=== PATIENT | female | born 1945 | race Caucasian/White ===

== ENCOUNTER → 2019-08-12 10:28 | Outpatient (CLI) | payer MEDICARE, OTHER | END | disposition home or self-care (01) | LOC: D.HCCARDIO 10:28 | PROVIDERS: ATTEND Internal Medicine Cardiovascular Disease | DX: R06.09 Other forms of dyspnea (principal) ==

== ENCOUNTER 2019-08-31 09:57 | Outpatient (CLI) | payer MEDICARE, OTHER ==
[~2019-08-31] VITALS: Ht 165.1 cm; Wt 80.9 kg
--- NOTE | ~2019-08-31 | HEMODYNAMI ---
PATIENT:OTIS NGUYEN MEDICAL RECORD: [id number] : 43 LOCATION:[facility] ADMISSION DATE: 08/31/19 Generatedon:08/31/201914:03 Patient name: OTIS NGUYEN Patient #: [id number] SSN: [id number] : 1945 Date of study: 08/31/2019 Page: Of Hemodynamic Procedure Report Patient Data Patient Demographics Procedure consent was obtained First Name: OTIS Gender: Female Last Name: PATRICK : 1945 [facility] Initial: C Age: 74 year(s) Patient #: [id number] Race: SSN: [id number] Additional ID: [id number] Contact details Address: [address] [place] [address] State: [place] City: [facility] Zip code: [address] Past Medical History Allergies: No known allergies Admission Admission Data Admission Date: 08/31/2019 Admission Time: 9:57 Arrival Date: 08/31/2019 Arrival Time: 0:00 Height (in.): 64.96 BSA: 1.88 (m2) Height (cm.): 165 BMI: 29.75 (kg/m2) Weight (lbs.): 178.58 Weight (kg.): 81 Lab Results Lab Result Date: 08/31/2019 Lab Result Time: 0:00 Biochemistry Name Units Result Min Max BUN mg/dl 16 --(---*)-- 7 18 Creatinine mg/dl 0.7 --(*---)-- 0.6 1.3 eGFR ml/min 85.76128 -*(----)-- 90 120 NONAFRICAN CBC Name Units Result Min Max Hematocrit % 39.7 -*(----)-- 42 54 Hemoglobin g/dl 12.7 -*(----)-- 13.5 17.5 Procedure Procedure Types Cath Procedure Diagnostic Procedure C [facility] w/Coronaries Sedation Charges Moderate Sedation up to 30 minutes Procedure Description Procedure Date Procedure Date: 08/31/2019 Procedure Start Time: 13:35 Procedure End Time: 14:01 Procedure Staff Name Function Aamir Javier MD Performing Physician Betsy Berrios RT Monitor Katie Babcock RN Nurse Helen Clark RT Scrub Indication Dyspnea Procedure Data Cath Procedure Fluoroscopy Diagnostic fluoroscopy Total fluoroscopy Time: 4.1 time: 4.1 min min Diagnostic fluoroscopy Total fluoroscopy dose: 605 dose: 605 mGy mGy Contrast Material Contrast Material Type Amount (ml) Isovue 300 71 Entry Location Entry Primary Successful Side Size Upsize Upsize Entry Closure Jules ccessful Closure Location (Fr) 1 (Fr) 2 (Fr) Remarks Device Remarks Radial Right 6 Fr Mechanical artery Short Compression Femoral Right 5 Fr Exoseal artery Estimated blood loss: 5 ml Diagnostic catheters Device Type Used For End Catheter Placement DIAGNOSTIC [place] 110cm 5 Procedure Fr catheter ([id number]) MULTIPACK JL 4.0 5Fr Left Coronary catheter Angiography MULTIPACK 3DRC 5Fr Right Coronary catheter Angiography MULTIPACK Pigtail 5 Fr LV Angiography catheter Procedure Complications No complications 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 100 ml/hr Oxygen etCO2 Nasal cannula 2 l/min Lidocaine 2% added to field 20 Heparin Flush Bag added to field 2 bags (1000units/500ml NS) Radial Cocktail added to field 1 syringe (Verapamil 2mg/Nitro 400mcg/Heparin 1500units) Versed I.V. 2 mg Fentanyl I.V. 50 mcg Versed I.V. 2 mg Fentanyl I.V. 50 mcg Versed I.V. 2 mg Fentanyl I.V. 50 mcg Hemodynamics Rest BSA: 1.88 (m2) HGB: 12.7 (g/dl) O2 Consumption: Estimated: 169.86 (ml/min) O2 Co nsumption indexed: Estimated:90.35 (ml/min/m) Heart Rate: 68 (bpm) Pressure Samples Time Site Value (mmHg) Purpose Heart Use Rate(bpm) 13:52 LV 180/11,11 Snapshot 123 13:54 AO 200/81(134) Pullback 103 13:54 LV 179/-1,11 Pullback 103 Gradients Valve Time Site 1 Site 2 Mean SEP/DFP Peak To Heart Use (mmHg) (sec/min) Peak Rate (mmHg) (bpm) Aortic 13:54 LV AO 0 5 0 103 179/-1,11 200/81(134) Calculations Valve P-P Mean Valve Index Valve Source Name Gradient Area Flow (cm2) Aortic 0 0 0 0 Snapshots Pre Cath Intra NCS Post Cath Vital Signs Time Heart Resp SPO2 etCO2 NIBP (mmHg) Rhythm Pain Sedation Rate (ipm) (%) (mmHg) Status Level (bpm) 13:09:49 78 14 100 33.1 Measuring NSR 0 (11) 10(A) , No pain 13:15:44 75 20 99 36.2 148/76(119) NSR 0 (11) 10(A) , No pain 13:20:10 77 20 98 37.7 145/74(116) NSR 0 (11) 10(A) , No pain 13:25:09 82 15 99 27.1 Measuring NSR 0 (11) 10(A) , No pain 13:25:28 84 14 99 27.1 155/80(128) NSR 0 (11) 10(A) , No pain 13:29:56 79 15 98 38.4 176/89(151) NSR 0 (11) 10(A) , No pain 13:34:22 79 13 98 0 159/78(120) NSR 0 (11) 10(A) , No pain 13:38:46 83 13 98 33.2 131/76(103) NSR 0 (11) 10(A) , No pain 13:43:46 83 12 92 36.9 Measuring NSR 0 (11) 10(A) , No pain 13:44:06 82 16 97 38.4 154/91(125) NSR 0 (11) 10(A) , No pain 13:49:05 82 12 81 42.9 Measuring NSR 0 (11) 10(A) , No pain 13:49:36 81 21 93 40.6 173/82(132) NSR 0 (11) 10(A) , No pain 13:54:35 82 16 100 41.4 Measuring NSR 0 (11) 10(A) , No pain 13:55:26 79 16 100 21.1 177/94(129) NSR 0 (11) 10(A) , No pain 14:00:00 75 20 100 39.9 182/93(134) NSR 0 (11) 10(A) , No pain Medications Time Medication Route Dose Verified Delivered Reason Notes E ffectiveness by by 13:08:09 0.9% NaCl I.V. 100 Aamir Katie used for ml/hr Yaya Babcock dry kiln burner 13:08:16 Oxygen etCO2 2 l/min Aamir Katie used for Nasal Yaya Babcock procedure cannula RN 13:08:21 Lidocaine 2% added 20ml Aamir Aamir for local to vial Yaya Javier MD anesthetic field 13:08:25 Heparin Flush added 2 bags Aamir Aamir used for Bag to Yaya Javier MD procedure (1000units/500ml field NS) 13:08:30 Radial Cocktail added 1 Aamir Aamir used for (Verapamil to syringe Yaya Javier MD procedure 2mg/Nitro field 400mcg/Heparin 1500units) 13:30:32 Versed I.V. 2 mg Aamir Katie for Yaya Babcock sedation RN 13:30:40 Fentanyl I.V. 50 mcg Aamir Katie for Yaya Babcock sedation RN 13:35:00 Versed I.V. 2 mg Aamir Katie for Yaya Babcock sedation RN 13:35:06 Fentanyl I.V. 50 mcg Aamir Katie for Yaya Babcock sedation RN 13:40:14 Versed I.V. 2 mg Aamir Katie for Yaya Babcock sedation RN 13:40:18 Fentanyl I.V. 50 mcg Aamir Katie for Yaya Babcock sedation supervisor molding Log Time Note 12:35:29 Informed consent obtained and on chart 12:36:23 Indication : Dyspnea 12:36:39 Arrival Date: 08/31/2019 12:00:00 AM 12:36:45 Patient Height : 64.96 inches 12:36:50 Patient Weight : 178.58 lbs 12:38:55 Lab Result : Creatinine 0.7 mg/dl 12:38:55 Lab Result : BUN 16 mg/dl 12:38:55 Lab Result : eGFR NONAFRICAN 85.25366 ml/min 12:38:55 Lab Result : Hematocrit 39.7 % 12:38:55 Lab Result : Hemoglobin 12.7 g/dl 12:39:08 Procedure Status Elective Heart Cath (OP). 12:39:11 Time tracking: Regular hours (M-F 7:00 - 5:00) 12:39:18 Plan of Care:Hemodynamics will remain stable., Cardiac rhythm will remain stable., Comfort level will be maintained., Respiratory function will remain adequate., Patient/ family verbilizes understanding of procedure., Procedure tolerated without complication., Recovers from procedure without complications.. 12:45:34 Stress Test: yes; abnormal ANTERIOR,INFERIOR,APICAL 12:45:39 Lab results completed and on chart. 12:48:03 Risk of Mortality: 0.1 12:48:08 Risk of blood transfusion: 0.4 12:48:13 Risk of ELIDIA: 0.7 12:48:28 Patient allergic to No known allergies 12:56:08 Helen Clark RT(R) sent for patient. Start room use. 12:59:32 ACC Patient presents with Stable Angina CCS Anginal Class 2--Slight limitation of ordinary activity. 13:01:52 Patient received from Pre/Post Procedure Room to CCL 1 Alert and oriented. Tansferred to table in Supine position. 13:01:55 Warm blankets applied, and yefri hugger turned on for patient comfort. 13:01:56 Correct patient and procedure confirmed by team. 13:01:57 ECG and BP/O2 sat monitors applied to patient. 13:02:05 Is the patient allergic to Iodine/contrast media? No. 13:02:09 Was the patient premedicated? Yes 13:02:12 Is patient on blood thinner?No 13:02:14 Patient diabetic? No. 13:02:17 ----Pre-sedation anethsthesia assessment.---- 13:02:21 Previous problem with sedation/anesthesia? No ? 13:02:24 Snore? Yes 13:02:27 Sleep apnea? No 13:02:30 Deviated septum? Unknown 13:02:32 Opens mouth fully? Yes 13:02:34 Sticks out tongue? Yes 13:02:38 Airway obstruction? No ? 13:02:41 Dentures? No ? 13:02:42 - 13:08:01 Vital chart was started 13:08:09 0.9% NaCl 100 ml/hr I.V. was administered by Katie Babcock RN; used for procedure; Verbal order read back and verified. 13:08:16 Oxygen 2 l/min etCO2 Nasal cannula was administered by Katie Babcock RN ; used for procedure; Verbal order read back and verified. 13:08:21 Lidocaine 2% 20ml vial added to field was administered by Aamir Javier MD ; for local anesthetic; Verbal order read back and verified. 13:08:25 Heparin Flush Bag (1000units/500ml NS) 2 bags added to field was administered by Aamir Javier MD; used for procedure; Verbal order read back and verified. 13:08:30 Radial Cocktail (Verapamil 2mg/Nitro 400mcg/Heparin 1500units) 1 syring e added to field was administered by Aamir Javier MD; used for procedure; Verbal order read back and verified. 13:10:42 Baseline sample Acquired. 13:10:58 Rhythm: sinus rhythm 13:11:00 Full Disclosure recording started 13:11:08 H&P Date Dictated: 08/31/2019 H&P Addendum completed by physician on day of procedure. (MUST COMPLETE FOR ALL OUTPATIENTS), New H&P dictated by physician.. 13:11:10 Pre-procedure instructions explained to patient. 13:11:11 Pre-op teaching completed and patient verbalized understanding. 13:12:35 Family in waiting room. 13:12:38 Patient NPO since Midnight. 13:12:47 Pre procedure: right dorsailis pedis pulse 2+ Normal; easily identifiable; not easily obliterated 13:13:00 IV patent on arrival in right antecubital with 0.9% NaCl at [facility]. 13:13:15 Right Radial & Right Groin area was prepped with chlora-prep and draped in sterile fashion 13:13:17 Alarms reviewed by R. N. 13:13:18 Sharps counted by scrub and verified by R.N. 13:13:30 Use device set Radial Dx or PCI 13:13:32 ACIST Syringe (72461) opened to sterile field. 13:13:33 Medline Cath Pack ([id number]) opened to sterile field. 13:13:34 Bag Decanter () opened to sterile field. 13:13:34 ACIST Hand Control (23329) opened to sterile field. 13:13:35 ACIST Manifold (06116) opened to sterile field. 13:13:37 MBrace Wrist Support ([id number]) opened to sterile field. 13:13:37 NEEDLE Cook 21G 4cm Radial (B29537) opened to sterile field. 13:13:39 EMERALD Guide Wire (557-409) opened to sterile field. 13:13:40 SHEATH 6FR RAIN (1314253) opened to sterile field. 13:21:02 Zero performed for pressure channel P1 13:28:59 Physician arrived 13:29:00 --------ALL STOP TIME OUT------ 13:29:01 Final Timeout: patient, procedure, and site verified with staff and physician. All members of the team are in agreement. 13:29:03 Right Radial & Right Groin site verified by team. 13:29:10 Fire Safety Assessment: A--An alcohol-based skin anteseptic being used preoperatively., C--Open oxygen or nitrous oxide is being used., D--An ESU, laser, or fiber-optic light is being used. 13:29:14 Physical assessment completed. ASA score P 2 - A patient with mild systemic disease as per Aamir Javier MD. 13:29:24 2) 60-89 Mildly reduced kidney function, and other findings (as for stage 1) point to kidney disease. 13:29:35 Maximum allowable contrast dose (3.7 X eGFR X 0.75)238 ml. 13:29:42 Sedation plan: IV Moderate Sedation Medication:Versed, Fentanyl 13:30:32 Versed 2 mg I.V. was administered by Katie Babcock RN; for sedation; Verbal order read back and verified. 13:30:40 Fentanyl 50 mcg I.V. was administered by Katie Babcock RN; for sedation ; Verbal order read back and verified. 13:34:02 Procedure started. 13:35:00 Versed 2 mg I.V. was administered by Katie Babcock RN; for sedation; Verbal order read back and verified. 13:35:06 Fentanyl 50 mcg I.V. was administered by Katie Babcock RN; for sedation ; Verbal order read back and verified. 13:35:10 Zero performed for pressure channel P1 13:35:25 Local anesthetic to right radial artery with Lidocaine 2% by Aamir Javier MD.INITIAL ACCESS ONLY 13:36:43 A 6 Fr Short sheath was inserted into the Right Radial artery 13:37:26 A DIAGNOSTIC [place] 110cm 5 Fr catheter (430354) was advanced over the wire and used for Procedure. 13:38:36 Catheter removed UNABLE TO GET PAST THE SUBCLAVIAN INTO THE AORTA. 13:39:20 Local anesthetic to right femoral artery with Lidocaine 2% by Aamir sargent MD.ADDITIONAL ACCESS 13:40:13 Use device set Multipack Set 13:40:14 Versed 2 mg I.V. was administered by Katie Babcock RN; for sedation; Verbal order read back and verified. 13:40:18 Fentanyl 50 mcg I.V. was administered by Katie Babcock RN; for sedation ; Verbal order read back and verified. 13:40:27 SHEATH 5FR [place] ([id number]) opened to sterile field. 13:40:34 DIAGNOSTIC Multipack 5Fr catheter set (YH5782) opened to sterile field. 13:40:41 Tegaderm 4 x 4 (1626W) opened to sterile field. 13:41:57 A 5 Fr sheath was inserted into the Right Femoral artery 13:42:06 A MULTIPACK JL 4.0 5Fr catheter was advanced over the wire and used for Left Coronary Angiography. 13:43:17 LCA angiography performed. 13:43:23 Injector settings: Ml/sec: 3, Volume: 6, 13:49:28 Catheter removed. 13:49:54 A MULTIPACK 3DRC 5Fr catheter was advanced over the wire and used for Right Coronary Angiography. 13:51:13 Injector settings: Ml/sec: 3, Volume: 6, 13:51:33 RCA angiography performed. 13:51:40 Catheter removed. 13:51:49 A MULTIPACK Pigtail 5 Fr catheter was advanced over the wire and used for LV Angiography. 13:52:00 Injector settings: Ml/sec: 5, Volume: 15, 13:52:05 LV gram done using BOYKIN 13:53:03 LV hemodynamics recorded. 13:53:51 EF : 60 % 13:54:29 Catheter removed. 13:54:41 EXOSEAL 5Fr (EX500) opened to sterile field. 13:54:44 ZEPHYR REGULAR TR BAND (883399) opened to sterile field. 13:55:17 Sheath removed intact; hemostasis achieved with Exoseal to the Right Femoral artery. 13:55:32 Sheath removed intact; hemostasis achieved with Mechanical Compression to the Right Radial artery. 13:55:36 Procedure ended.(Physican Out) 13:55:45 Contrast amount:Isovue 300 71ml. 13:56:14 Maximum allowable dose exceeded? No. 13:56:23 Fluoroscopy time 04.10 minutes. 13:56:29 Fluoroscopy dose: 605 mGy 13:56:29 Flurop Dose total: 605 13:56:37 Dose Area Product 07571 mGy/cm. 13:56:40 Sharps counted by scrub and verified by R.N. 13:56:43 [place] band inflated with 10cc of air. 13:56:46 Insertion/operative site no bleeding no hematoma. 13:56:54 Post right femoral artery:stable 13:56:59 Post-op/insertion site Right Femoral artery dressed using a 4 x 4 and Tegaderm. 13:57:05 Post right radial artery:stable 13:57:10 Post-procedure physical assessment completed. ASA score P 2 - A patient with mild systemic disease as per Aamir Javier MD. 13:57:14 Post procedure rhythm: unchanged. 13:57:18 Estimated blood loss: 5 ml 13:57:20 Post procedure instruction explained to patient.Patient verbalizes understanding. 13:57:20 Patient needs reinforcement of post procedure teaching. 13:58:30 Procedure type changed to Cath procedure, Diagnostic procedure, [facility], C w/Coronaries, Sedation Charges, Moderate Sedation up to 30 minutes 13:58:32 Procedure and supply charges have been captured, reviewed, submitted an d are correct. 13:59:14 Procedure Complication : No complications 14:01:29 Procedure Complication : Pseudoaneurysm-No Treatment 14:01:34 Vital chart was stopped 14:01:37 [facility] Findings: mild to moderate CAD (<70%) 14:01:39 Operative report dictated upon procedure completion. 14:01:41 See physician's report for complete and final results. 14:01:43 Report given to Pre/Post Procedure Room. 14:01:47 Patient transfered to Pre/Post Procedure Room with Stretcher. 14:01:50 Procedure ended. 14:01:50 Full Disclosure recording stopped 14:01:54 End room use (Document Last) Device Usage Item Name Manufacture Quantity Catalog Hospital Part Current Minima l Lot# / Number Charge Number Stock Stock Serial# Code ACIST Acist 1 02263 996957 356978 319477 20 Syringe Medical (68894) Systems Inc Medline Medline 1 [id number] 754583 93508 334565 5 Cath Pack ([id number]) Bag Microtek 1 911945 44319 334281 5 Decanter Medical Inc. () ACIST Hand Acist 1 62431 676413 131351 790790 5 Control Medical (83823) Systems Inc ACIST Acist 1 58943 347070 019755 136308 5 Manifold Medical (72491) Systems Inc MBrace Advanced 1 140-0250-00 358607 21330 910382 5 Wrist Vascular Support Dynamics ([id number]) NEEDLE [employer] Medical 1 J37914 488349 590016 173871 5 21G 4cm Radial (B12755) EMERALD Cardinal 1 502-455 967837 588546 417109 5 Guide Wire Health (502-455) SHEATH 6FR Cardinal 1 7816226 152790 8138654 591632 5 [facility] [employer] (3147059) DIAGNOSTIC Terumo 1 40-5013 139490 738283 584417 5 [place] 110cm 5 Fr catheter (481459) SHEATH 5FR Terumo 1 MOF863 604705 684159 843112 5 [place] (ZER465) DIAGNOSTIC Cardinal 1 SJ9664 555434 47676 486361 30 Multipack Health 5Fr catheter set (PG0091) Tegaderm 4 3M 1 1626W 624677 195979 202764 5 x 4 (1626W) MULTIPACK Cardinal 1 774457 5 JL 4.0 5Fr Health catheter MULTIPACK Cardinal 1 487639 5 3DRC 5Fr Health catheter MULTIPACK Cardinal 1 449628 5 Pigtail 5 Health Fr catheter EXOSEAL 5Fr Cardinal 1 EX500 714189 843497 959039 10 (EX500) Health ZEPHYR Cardinal 1 573471 645173 3742552 650702 5 REGULAR TR Health BAND (709951) Signature Audit [place] Stage Time Signature Unsigned Intra-Procedure 08/31/2019 Betsy 2:02:16 PM Yash RT(R) (CV) Intra-Procedure 08/31/2019 Katie Babcock 2:02:43 PM RN Intra-Procedure 08/31/2019 Aamir Javier MD 2:03:10 PM [facility] [address] [place] [address]
[2019-08-31] MEDS ORDERED: CYMBALTA60 MG PO (10:39)
[2019-08-31] MEDS ORDERED: COREG25 MG PO (10:39)
[2019-08-31] MEDS ORDERED: HYDROCODONE-IB1 EAC3 PO (10:40)
[2019-08-31 11:10] VITALS: BP 143/59; Ht 165.1 cm; Wt 80.9 kg
[2019-08-31 11:24] LABS: BASOPHILS 0.1 % (0-2); EOSINOPHILS 2.6 % (0-7); HEMATOCRIT 39.7 % (36.0-48.0); HEMOGLOBIN 12.7 g/dL (12-16); IMMATURE GRANULOCYTES 0.3 % (0-5); LYMPHOCYTES 17.2 % (15-50); MCH 30.8 pg (26.0-34.0); MCV 96.4 fL (80.0-100.0); MONOCYTES 5.7 % (2-11); NEUTROPHILS 74.1 % (40-80); PLATELET COUNT 251 10x3/uL (130-400); RBC 4.12 10x6/uL (4.00-5.40); WBC 7.3 10x3/uL (4.8-10.8)
[2019-08-31 11:41] LABS: ALT (SGPT) 41 U/L (10-68); CALC OSMOLALITY 276 mosm/kg (275-300); CALCIUM 9.6 mg/dL (8.5-10.1); CARBON DIOXIDE 29.7 mmol/L (21.0-32.0); CHLORIDE - SERUM 101 mmol/L (98-107); CHOL - HDL RATIO 3.6 ratio (2.3-4.1); CHOLESTEROL, TOTAL 200 mg/dL (0-200); CREATININE - SERUM 0.7 mg/dL (0.6-1.3); GLUCOSE 101 mg/dL (74-106); HDL CHOLESTEROL 56 mg/dL (32-96); LDL CHOLESTEROL 112 mg/dL (0-100); POTASSIUM - SERUM 4.6 mmol/L (3.5-5.1); SODIUM 138 mmol/L (136-145); TRIGLYCERIDE 160 mg/dL (30-200); UREA NITROGEN 16 mg/dL (7-18); eGFR NON AFRICAN AMERICAN 86 mL/min (90-120)
--- NOTE | 2019-08-31 14:10 | NUR ---
PT RECEIVED BACK FROM LINEN AIDE FOR RECOVERY, PT SLEEPING BUT VERBALLY AROUSABLE. IV PATENT INFUSING VIA ORDERS TO R ARM. PT DENIES PAIN OR DISCOMFORT. PT PLACED ON CARDIAC MONITORS AND O2 VIA NC AT 2L. HR NSR RATE 73, BP 179/85, RR 11, SAT 94. ZYPHER BAND AND IMMOBILIZER TO R WRIST/ARM, NO BLEEDING OR S/S HEMATOMA NOTED. ARM PINK AND WARM, CAP REFILL BRISK. R GROIN DRESSING CDI NO S/S HEMATOMA OR BLEEDING. LEG PINK AND WARM, PEDAL PULSES PALPABLE. PT INSTRUCTED TO KEEP HEAD ON PILLOW AND LEG STRAIGHT, SHE VERBALIZED UNDERSTANDING. DR GOMEZ WAS IN ROOM AND SPOKE WITH REGARDING PLAN OF CARE AND PROCEDURE RESULTS. CALL LIGHT IN REACH
--- NOTE | 2019-08-31 14:30 | NUR ---
ZBAND AND IMMOBILIZER IN PLACE, NO BLEEDING OR S/S HEMATOMA NOTED. R GROIN DRESSING CDI NO S/S HEMATOMA. EXTREMITIES WARM AND PINK. VSS, CALL LIGHT IN REACH, AT BEDSIDE. SIPS OF PO FLUIDS GIVEN.
--- NOTE | 2019-08-31 15:15 | NUR ---
PT RESTING COMFORTABLY. 4CC AIR REMOVED FROM ZYPHER BAND, NO BLEEDING OR S/S HEMATOMA NOTED. CAP REFILL BRISK. R GROIN DRESSING REMAINS CDI NO S/S HEMATOMA NOTED, LEG PINK AND WARM. HOB ELEVATED SLIGHTLY. PT DENIES PAIN OR DISCOMFORT. CALL LIGHT IN REACH, REMAINS AT BS.
--- NOTE | 2019-08-31 15:45 | NUR ---
3 ADD'L CC AIR REMOVED FROM ZBAND, NO BLEEDING OR S/S HEMATOMA. R GROIN DRESSING CDI NO S/S HEMATOMA NOTED. HOB ELEVATED MORE, SANDWICH TRAY AND DRINK SERVED. CALL LIGHT IN REACH.
--- NOTE | 2019-08-31 16:03 | NUR ---
IV REMOVED W CATH INTACT, MONITORS REMOVED. R GROIN DRESSING CDI NO S/S HEMATOMA. ZBAND IN PLACE, NO S/S HEMATOMA. PT UP AND AMBULATED TO BR, VOIDING W/O DIFFICULITY. TOLERATED LUNCH TRAY W/O N/V.
--- NOTE | 2019-08-31 16:15 | NUR ---
DISCHARGE INSTRUCTIONS REVIEWED W PT AND , BOTH VERBALIZED UNDERSTANDING. ZBAND AND REMAINING AIR REMOVED, NO BLEEDING OR S/S HEMATOMA NOTED. 2X2 AND SM TEGADERM DRESSING APPLIED. IMMMOBILIZER RE POSITIONED. 1625 PT DISCHARGED VIA WC TO WAITING IN PRIVATE VEHICLE. PT HAD ALL BELONGINGS AND DISCHARGE INFORMATION
== END 2019-08-31 16:25 | disposition home or self-care (01) ==
LOC: D.CATH 09:57
PROVIDERS: ATTEND Internal Medicine Cardiovascular Disease
DX: I25.119 Atherosclerotic heart disease of native coronary artery with unspecified angina pectoris (principal); R94.30 Abnormal result of cardiovascular function study, unspecified; I10 Essential (primary) hypertension; R06.02 Shortness of breath; Z82.49 Family history of ischemic heart disease and other diseases of the circulatory system

== ENCOUNTER 2020-06-10 10:56 | Inpatient (IN) | payer MEDICARE, OTHER ==
[~2020-06-10] VITALS: Ht 165.1 cm; Wt 77.3 kg
--- NOTE | ~2020-06-10 | EC ---
PATIENT:OTIS NGUYEN DATE OF SERVICE: 06/10/20 SEX: F MEDICAL RECORD: [id number] DATE OF : 43 LOCATION:[facility] AGE OF PATIENT: 75 ADMISSION DATE: 06/10/20 REFERRING PHYSICIAN: INTERPRETING PHYSICIAN: NE CORONA MD ECHOCARDIOGRAM REPORT ECHO CHARGES 4 ECHO COMPLETE Date: 06/10/20 CLINICAL DIAGNOSIS: CVA ECHOCARDIOGRAPHIC MEASUREMENTS (adult normal given) AC root (d.<3.7cm) 2.7 cm LV Septum d (<1.2 cm> 0.8 cm Valve Excursion 1.5 cm LV Septum (systole) 1.0 cm Left Atria (s.<4.0cm> 2.9 cm LVPW d(<1.2cm) 1.1 cm RV (d.<2.3cm) 2.5 cm LVPW (sytole) 1.3 cm LV diastole(<5.6CM) 5.8 cm MV E-F(>70mm/sec) cm LV systole 4.7 cm LVOT Diameter 1.8 cm MV exc.(>10mm) 1.8 cm Est.ejection fraction (50-75%) % DOPPLER: LVIT cm/sec A 46 cm/sec E 39 cm/sec LA cm/sec RVSP 32 mmHg LVOT 60 cm/sec AOP1/2T m/s Asc. Ao 123 cm/sec RVOT 59 cm/sec RA cm/sec PA 62 cm/sec AV Gradient Peak 6.1 mmHg AV Mean 4.0 mmHg AV Area 1.1 cm MV Gradient Peak 4.0 mmHg MV Mean 1.9 mmHg MV Area cm COMMENTS: Advertising Copy Writer: Eugenio URIARTE Snow Technician: 4 Dr. Corona TAPE# Pericardial Effusion N DATE OF SERVICE: PROCEDURE: Transthoracic echocardiogram. The patient has dextrocardia. The patient has a history of CVA. This is a transthoracic echocardiogram. Technically very difficult and images were not well seen, but overall the patient had normal ejection fraction. The patient's chamber sizes appear to be grossly normal. There are no obvious significant valvular abnormalities. ECHOCARDIOGRAM REPORT [id number] OTIS NGUYEN Further testing evaluation may be helpful depending on clinical situation. TRANSINT:[id number] Voice Confirmation ID: [id number] DOCUMENT ID: [id number] NE CORONA MD CC: [id number] DICTATION DATE: 06/12/20 1328 REIMBURSEMENT REPRESENTATIVE: 06/12/202227 DIS IN 06/12/20 [place] [id number] [place] [id number]
[~2020-06-10 10:56] MED LIST: COREG25 MG PO; CYMBALTA60 MG PO; HYDROCODONE-IB1 EAC3 PO
[2020-06-10] MEDS ORDERED: CRESTOR20 MG PO (11:05)
[2020-06-10] MEDS ORDERED: ULTRAM50 MG PO (11:06)
--- NOTE | 2020-06-10 11:26 | NUR ---
PATIENT TAKENT TO CT VIA WHEELCHAIR. SERUM LAB AND URINE SENT WITH 911 EMERGENCY SERVICES DISPATCHER.
[2020-06-10 11:32] LABS: BASOPHILS 0.3 % (0-2); EOSINOPHILS 1.9 % (0-7); HEMOGLOBIN 13.2 g/dL (12-16); IMMATURE GRANULOCYTES 0.4 % (0-5); LYMPHOCYTE ABS# 0.97 10x3/uL (1.18-3.74); LYMPHOCYTES 12.1 % (15-50); MCH 31.4 pg (26.0-34.0); MCV 95.2 fL (80.0-100.0); MEAN PLATELET VOLUME 8.7 fL (7.4-10.4); MONOCYTES 5.8 % (2-11); NEUTROPHIL ABS# 6.36 10x3/uL (1.56-6.13); NEUTROPHILS 79.5 % (40-80); PLATELET COUNT 231 10x3/uL (130-400); RDW 13.5 % (11.5-14.5)
--- NOTE | 2020-06-10 11:48 | NUR ---
ATTMEPTED TO PLACE PATIENT ON DIRECTOR OF EVENT MANAGEMENT. DR PERRY AT BEDSIDE SPEAKING WITH HER. WILL RETURN TO REATTEMPT.
[2020-06-10 12:04] LABS: ALBUMIN 3.6 g/dL (3.4-5.0); ALKALINE PHOSPHATASE 186 U/L (30-120); ALT (SGPT) 28 U/L (10-68); CALC OSMOLALITY 284 mosm/kg (275-300); CALCIUM 9.1 mg/dL (8.5-10.1); CHLORIDE - SERUM 103 mmol/L (98-107); CREATININE - SERUM 0.7 mg/dL (0.6-1.3); MAGNESIUM - SERUM 2.1 mg/dL (1.8-2.4); POTASSIUM - SERUM 3.8 mmol/L (3.5-5.1); SODIUM 141 mmol/L (136-145); UREA NITROGEN 13 mg/dL (7-18); eGFR NON AFRICAN AMERICAN 86 mL/min (90-120)
[2020-06-10 12:05] LABS: GLUCOSE 178 mg/dL (74-106)
--- NOTE | 2020-06-10 12:29 | NUR ---
RADIOLOGY AT BEDSIDE.
--- NOTE | 2020-06-10 13:16 | NUR ---
PATIENT STILL IN MRI
--- NOTE | 2020-06-10 13:23 | NUR ---
REPORT CALLED TO RECIEVING NURSE AT THIS TIME.
[2020-06-10 15:01] VITALS: BP 156/78; Ht 165.1 cm; Wt 77.3 kg
--- NOTE | 2020-06-10 15:13 | NUR ---
TO UNIT VIA WHEELCHAIR. FAMILY AT BEDSIDE. BED LOW POSITION, CALL LIGHT IN REACH. DENIES NEEDS AT THIS TIME. ALERT AND ORIENTED. WILL CONTINUE TO MONITOR.
[2020-06-10 16:48] VITALS: BP 186/95
--- NOTE | 2020-06-10 18:49 | NUR ---
FAMILY IN ROOM. SITTING UP AT SIDE OF BED. DENIES NEEDS AT THIS TIME. BED LOW POSITION, CALL LIGHT IN REACH. WILL CONTINUE TO MONITOR.
[2020-06-10 20:07] VITALS: BP 135/69
[2020-06-11 05:26] LABS: BASOPHILS 0.2 % (0-2); EOSINOPHILS 1.8 % (0-7); HEMATOCRIT 38.2 % (36.0-48.0); HEMOGLOBIN 12.7 g/dL (12-16); IMMATURE GRANULOCYTES 0.3 % (0-5); LYMPHOCYTE ABS# 1.35 10x3/uL (1.18-3.74); LYMPHOCYTES 15.3 % (15-50); MCH 31.2 pg (26.0-34.0); MCHC 33.2 g/dL (31.0-37.0); MCV 93.9 fL (80.0-100.0); MEAN PLATELET VOLUME 8.6 fL (7.4-10.4); MONOCYTES 6.4 % (2-11); NEUTROPHIL ABS# 6.68 10x3/uL (1.56-6.13); PLATELET COUNT 211 10x3/uL (130-400); RBC 4.07 10x6/uL (4.00-5.40); RDW 13.5 % (11.5-14.5); WBC 8.8 10x3/uL (4.8-10.8)
[2020-06-11 05:46] LABS: ALBUMIN 3.3 g/dL (3.4-5.0); ALKALINE PHOSPHATASE 159 U/L (30-120); ALT (SGPT) 25 U/L (10-68); BILIRUBIN - TOTAL 0.44 mg/dL (0.2-1.3); CALC OSMOLALITY 276 mosm/kg (275-300); CHLORIDE - SERUM 104 mmol/L (98-107); CREATININE - SERUM 0.7 mg/dL (0.6-1.3); GLUCOSE 98 mg/dL (74-106); MAGNESIUM - SERUM 2.3 mg/dL (1.8-2.4); PROTEIN - SERUM 6.5 g/dL (6.4-8.2); SODIUM 139 mmol/L (136-145); UREA NITROGEN 10 mg/dL (7-18); eGFR NON AFRICAN AMERICAN 86 mL/min (90-120)
[2020-06-11 06:39] VITALS: BP 130/64
--- NOTE | 2020-06-11 07:42 | NUR ---
PATIENT REPORTS HEADACHE, MEDICATED PER ORDERS. ABLE TO AMBULATE TO BATHROOM. NO FURTHER NEEDS AT THS TIME.
[2020-06-11 08:38] VITALS: BP 126/80
--- NOTE | 2020-06-11 10:30 | NUR ---
ASSESSMENT PER FLOW SHEET. PATIENT IS WITHOUT DISTRESS. AWAKE AND VISITING WITH FAMILY. HOPES TO DC TODAY. MONITOR FOR NEEDS
[2020-06-11 12:43] VITALS: BP 113/72
[2020-06-11 16:59] VITALS: BP 106/66
--- NOTE | 2020-06-11 19:00 | NUR ---
BEDSIDE REPORT RECEIVED AND CARE OF PT ASSUMED. PT SITTING UP VISITING WITH SPOUSE, WATCHING TV AT THIS TIME. NO IV SITED. TELEMETRY IN PLACE PER ORDER AND READING SR AT THIS ASSESSMENT. WILL MONITOR FOR NEEDS.
--- NOTE | 2020-06-11 20:22 | NUR ---
HS MEDICATIONS GIVEN. FSBS 142 THIS CHECK REQUIRING NO COVERAGE PER SLIDING SCALE.
[2020-06-11 20:38] VITALS: BP 128/76
--- NOTE | 2020-06-11 21:20 | NUR ---
GAVE TRAMADOL 50 MG PO PER PT REQUEST FOR CHRONIC NECK PAIN AND HEADACHE, PER PRN ORDER. WILL MONITOR FOR EFFECTIVENESS.
[2020-06-12 00:46] VITALS: BP 128/60
[2020-06-12 05:26] VITALS: BP 120/54
[2020-06-12 05:26] LABS: BASOPHILS 0.1 % (0-2); EOSINOPHILS 2.8 % (0-7); HEMATOCRIT 37.4 % (36.0-48.0); HEMOGLOBIN 12.6 g/dL (12-16); IMMATURE GRANULOCYTES 0.3 % (0-5); LYMPHOCYTE ABS# 1.55 10x3/uL (1.18-3.74); LYMPHOCYTES 20.1 % (15-50); MCH 31.7 pg (26.0-34.0); MCHC 33.7 g/dL (31.0-37.0); MCV 94.2 fL (80.0-100.0); MEAN PLATELET VOLUME 8.8 fL (7.4-10.4); MONOCYTES 7.9 % (2-11); NEUTROPHIL ABS# 5.31 10x3/uL (1.56-6.13); NEUTROPHILS 68.8 % (40-80); PLATELET COUNT 217 10x3/uL (130-400); RBC 3.97 10x6/uL (4.00-5.40); RDW 13.5 % (11.5-14.5); WBC 7.7 10x3/uL (4.8-10.8)
[2020-06-12 05:51] LABS: ALBUMIN 3.3 g/dL (3.4-5.0); ALKALINE PHOSPHATASE 165 U/L (30-120); ALT (SGPT) 24 U/L (10-68); BILIRUBIN - TOTAL 0.45 mg/dL (0.2-1.3); CALC OSMOLALITY 278 mosm/kg (275-300); CALCIUM 8.9 mg/dL (8.5-10.1); CARBON DIOXIDE 25.1 mmol/L (21.0-32.0); CHLORIDE - SERUM 104 mmol/L (98-107); CREATININE - SERUM 0.7 mg/dL (0.6-1.3); GLUCOSE 100 mg/dL (74-106); MAGNESIUM - SERUM 2.3 mg/dL (1.8-2.4); POTASSIUM - SERUM 3.9 mmol/L (3.5-5.1); PROTEIN - SERUM 6.4 g/dL (6.4-8.2); SODIUM 139 mmol/L (136-145); eGFR NON AFRICAN AMERICAN 86 mL/min (90-120)
[2020-06-12 05:52] LABS: UREA NITROGEN 15 mg/dL (7-18)
--- NOTE | 2020-06-12 08:00 | NUR ---
ASSESSMENT PER FLOW SHEET. PATIENT IS WITHOUT DISTRESS. SCD'S OFF AT PRESENT. IS INSTRUCTED.CALL LIGHT IN REACH
[2020-06-12 08:28] VITALS: BP 168/77
[2020-06-12] MEDS ORDERED: AGGRENOX PO (11:56)
[2020-06-12 12:01] VITALS: BP 103/71
--- NOTE | 2020-06-12 14:20 | MORECARE ---
CASE MANAGEMENT DISCHARGE SUMMARY PATIENT: OTIS NGUYEN UNIT: [id number] ADM DATE: 06/10/20 AGE: 75 : 44 SEX: F ROOM/BED: D.2240 AUTHOR: NAHID MYRICK PHYSICIAN: REFERRING PHYSICIAN: NISHA FORBES MD DATE OF SERVICE: 06/12/20 Case Management Discharge Planning Summary CT Patient Name: OTIS NGUYEN Attending MD : TYE FORBES, Medical Record: [id number] Encounter : [id number] Facility : [address] [place] [address] Admission Date : 112:13 Center Discharge Date : [address] [place] [address] Date of : DC Plan ID : [id number] Age/Sex/Martia : 75/ F/M Printed on : 06/12/20 14:19 CT DCP Review Details Anticipated D/C: 06/12/2020 Expected LOS : 2 Case Status : INITIATED - Initial Reviewe: [id number] - Rashi Zepeda Initial Review: 06/10/2020 Planned Disposi: 01 - Home or Self Care (Routine Discharge) Final Discharge: - Final Reviewer : : Final Review : Comments CT Entered Date Type Reviewer 06/12/20 14:08 CT Discharge Planning Rashi Zepeda Comment CM met with patient to complete DC plan and to evaluate needs. Patient independently with her , Radha Carey, ). At discharge, the patient plans to return home and feels this is a safe discharge. Patient stated that she use [facility] [address] as [address] and Dr. Rocco Gunter is her primary physician. CM discussed availability of home health, rehab services, and medical equipment. Patient declined HHS, SNF, IPR, and DME. Patient voiced no other needs at this time and is satisfied with DC plan. Transportation provider at discharge will be with her , Radha. DC IMM delivered, explained, signed by the patient, and placed in chart. Signed form also left with the patient. CM will continue to follow and will assist as needed with dc plans/needs. DCP Focus Questions & Answers DCP Evaluation Patient gives permission to discuss discharge RADHA NGUYEN, , plans with: (name, relationship and number) Patient and/or caregiver agree upon recommended Yes discharge plan? Patient's current cognitive status: *Oriented to person, place, situation, time and present Patient's ability to cope with chronic illness d. No chronic illness Physical Status: Independent with ADL's Does the patient have the ability to pay for or Yes attain post discharge needs / services? Functional screen assessment: No issues identified Functional screen assessment: Basic needs can adequately be met by self Living Arrangements: Home with Spouse/Significant Other Equipment needed for post hospitalization: None Is there a likelihood that the patient will No require additional services to return to the preadmission environment? Baseline cognitive status: *Oriented to person, place, situation, time and present Patient with capacity for self-care or can be Yes cared for in same environment as prior to hospitalization? Physical environment modification needed / No anticipated for discharge: Medication Management: Patient states can read and understand medication labels Medication Management: Patient states can afford medications Does Patient have transportation to get home and Yes to follow-up medical appointments when discharged from the hospital? Would patient like to participate in any Care Not applicable Coordination programs (if applicable): Does the patient have electricity at home? Yes Does the patient have running water in their Yes house? Mental health screen: No mental health history DCP Re-evaluation Would patient like to participate in any Care Not applicable Coordination programs (if applicable): [facility] OTIS NGUYEN MR#: [id number] /Age/Sex/[id number]-64 /75/F /M Attending Physician Name: LEIDY [id number] Patient Account:[id number] [facility] Page -1 of 1 All edits/amendments must be made on the electronic document DICTATION DATE: 06/12/201418 BRAZER ELECTRON[employer]: CHELSY 06/12/201418 RPT#: [id number] DC DATE: STATUS: ADM IN [facility] [address] [place] [address] END OF REPORT
--- NOTE | 2020-06-12 14:24 | NUR ---
DISCHARGE PAPERS COMPLETE. NO FURTHER QUESTIONS. NO IV PRESENT. GATHERED BELONGINGS AND LEFT UNIT VIA WHEELCHAIR TO HOME.
--- NOTE | 2020-06-12 14:44 | MORECARE ---
CASE MANAGEMENT DISCHARGE SUMMARY PATIENT: OTIS NGUYEN UNIT: [id number] ADM DATE: 06/10/20 AGE: 75 : 43 SEX: F ROOM/BED: D.2240 AUTHOR: ELEN,DOC PHYSICIAN: REFERRING PHYSICIAN: NISHA FORBES MD DATE OF SERVICE: 06/12/20 Case Management Discharge Planning Summary CT Patient Name: OTIS NGUYEN Attending MD : TYE FORBES, Medical Record: [id number] Encounter : [id number] Facility : [address] [place] [address] Admission Date : 112:13 Center Discharge Date : 06/12/[address] [place] [address] Date of : DC Plan ID : [id number] Age/Sex/Martia : 75/ F/M Printed on : 06/12/20 14:43 CT DCP Review Details Anticipated D/C: 06/12/2020 Expected LOS : 2 Case Status : INITIATED - Initial Reviewe: [id number] - Rashi Zepeda Initial Review: 06/10/2020 Planned Disposi: 01 - Home or Self Care (Routine Discharge) Final Discharge: - Final Reviewer : : Final Review : Comments CT Entered Date Type Reviewer 06/12/20 14:08 CT Discharge Planning Rashi Zepeda Comment CM met with patient to complete DC plan and to evaluate needs. Patient independently with her , Radha Carey, ). At discharge, the patient plans to return home and feels this is a safe discharge. Patient stated that she use [facility] [address] as [address] Dr. Rocco Gunter is her primary physician. CM discussed availability of home health, rehab services, and medical equipment. Patient declined HHS, SNF, IPR, and DME. Patient voiced no other needs at this time and is satisfied with DC plan. Transportation provider at discharge will be with her , Radha. DC IMM delivered, explained, signed by the patient, and placed in chart. Signed form also left with the patient. CM will continue to follow and will assist as needed with dc plans/needs. DCP Focus Questions & Answers DCP Evaluation Patient gives permission to discuss discharge ARDHA NGUYEN, , plans with: (name, relationship and number) Patient and/or caregiver agree upon recommended Yes discharge plan? Patient's current cognitive status: *Oriented to person, place, situation, time and present Patient's ability to cope with chronic illness d. No chronic illness Physical Status: Independent with ADL's Does the patient have the ability to pay for or Yes attain post discharge needs / services? Functional screen assessment: No issues identified Functional screen assessment: Basic needs can adequately be met by self Living Arrangements: Home with Spouse/Significant Other Equipment needed for post hospitalization: None Is there a likelihood that the patient will No require additional services to return to the preadmission environment? Baseline cognitive status: *Oriented to person, place, situation, time and present Patient with capacity for self-care or can be Yes cared for in same environment as prior to hospitalization? Physical environment modification needed / No anticipated for discharge: Medication Management: Patient states can read and understand medication labels Medication Management: Patient states can afford medications Does Patient have transportation to get home and Yes to follow-up medical appointments when discharged from the hospital? Would patient like to participate in any Care Not applicable Coordination programs (if applicable): Does the patient have electricity at home? Yes Does the patient have running water in their Yes house? Mental health screen: No mental health history DCP Re-evaluation Would patient like to participate in any Care Not applicable Coordination programs (if applicable): [facility] OTIS NGUYEN MR#: [id number] /Age/Sex/[id number]-89 //F /M Attending Physician Name: LEIDY [id number] Patient Account:[id number] [facility] Page -1 of 1 All edits/amendments must be made on the electronic document DICTATION DATE: 06/12/201442 TAX MANAGER: CHELSY 06/12/20 144 RPT#: [id number] DC DATE:06/12/20 STATUS: DIS IN [facility] [address] [place] [address] END OF REPORT
--- NOTE | 2020-06-13 16:50 | MORECARE ---
CASE MANAGEMENT DISCHARGE SUMMARY PATIENT: OTIS NGUYEN UNIT: [id number] ADM DATE: 06/10/20 AGE: 75 : 43 SEX: F ROOM/BED: D.2240 AUTHOR: ELEN,DOC PHYSICIAN: REFERRING PHYSICIAN: NISHA FORBES MD DATE OF SERVICE: 06/13/20 Case Management Discharge Planning Summary CT Patient Name: OTIS NGUYEN Attending MD : TYE FORBES, Medical Record: [id number] Encounter : [id number] Facility : [address] [place] [address] Admission Date : 112:13 Center Discharge Date : 06/12/[address] [place] [address] Date of : DC Plan ID : [id number] Age/Sex/Martia : 75/ F/M Printed on : 06/13/20 16:49 CT DCP Review Details Anticipated D/C: 06/12/2020 Expected LOS : 2 Case Status : INITIATED - Initial Reviewe: [id number] - Rashi Zepeda Initial Review: 06/10/2020 Planned Disposi: 01 - Home or Self Care (Routine Discharge) Final Discharge: - Final Reviewer : : Final Review : Comments CT Entered Date Type Reviewer 06/12/20 14:08 CT Discharge Planning Rashi Zepeda Comment CM met with patient to complete DC plan and to evaluate needs. Patient independently with her , Radha Carey, ). At discharge, the patient plans to return home and feels this is a safe discharge. Patient stated that she use [facility] [address] Dr. Rocco Gunter is her primary physician. CM discussed availability of home health, rehab services, and medical equipment. Patient declined HHS, SNF, IPR, and DME. Patient voiced no other needs at this time and is satisfied with DC plan. Transportation provider at discharge will be with her , Radha. DC IMM delivered, explained, signed by the patient, and placed in chart. Signed form also left with the patient. CM will continue to follow and will assist as needed with dc plans/needs. DCP Focus Questions & Answers DCP Evaluation Patient gives permission to discuss discharge RADHA NGUYEN, , plans with: (name, relationship and number) Patient and/or caregiver agree upon recommended Yes discharge plan? Patient's current cognitive status: *Oriented to person, place, situation, time and present Patient's ability to cope with chronic illness d. No chronic illness Physical Status: Independent with ADL's Does the patient have the ability to pay for or Yes attain post discharge needs / services? Functional screen assessment: No issues identified Functional screen assessment: Basic needs can adequately be met by self Living Arrangements: Home with Spouse/Significant Other Equipment needed for post hospitalization: None Is there a likelihood that the patient will No require additional services to return to the preadmission environment? Baseline cognitive status: *Oriented to person, place, situation, time and present Patient with capacity for self-care or can be Yes cared for in same environment as prior to hospitalization? Physical environment modification needed / No anticipated for discharge: Medication Management: Patient states can read and understand medication labels Medication Management: Patient states can afford medications Does Patient have transportation to get home and Yes to follow-up medical appointments when discharged from the hospital? Would patient like to participate in any Care Not applicable Coordination programs (if applicable): Does the patient have electricity at home? Yes Does the patient have running water in their Yes house? Mental health screen: No mental health history DCP Re-evaluation Would patient like to participate in any Care Not applicable Coordination programs (if applicable): [facility] OTIS NGUYEN MR#: [id number] /Age/Sex/[id number]-Blv-52 //F /M Attending Physician Name: LEIDY [id number] Patient Account:[id number] [facility] Page -1 of 1 All edits/amendments must be made on the electronic document DICTATION DATE: 06/13/201648 EMERGENCY MEDICAL TECHNICIAN: CHELSY 06/13/201648 RPT#: [id number] DC DATE:06/12/20 STATUS: DIS IN [facility] [address] [place] [address] END OF REPORT
== END 2020-06-12 14:26 | disposition home or self-care (01) | DRG 65 ==
LOC: D.ER 10:56 → D.MS 12:13
PROVIDERS: Emergency Medicine; ADMIT Family Medicine; ATTEND Family Medicine
DX: I63.9 Cerebral infarction, unspecified (principal); G81.91 Hemiplegia, unspecified affecting right dominant side; I10 Essential (primary) hypertension; E78.5 Hyperlipidemia, unspecified; F32.9 Major depressive disorder, single episode, unspecified; R26.9 Unspecified abnormalities of gait and mobility; R91.8 Other nonspecific abnormal finding of lung field; M41.9 Scoliosis, unspecified

== ENCOUNTER → 2020-08-08 12:55 | Outpatient (CLI) | payer MEDICARE, OTHER ==
[2020-06-10 15:01] VITALS: BMI 28.3
[~2020-08-08 12:55] MED LIST changes: +AGGRENOX PO; +CRESTOR20 MG PO; +ULTRAM50 MG PO
== END | disposition home or self-care (01) ==
LOC: D.CT 12:55
PROVIDERS: ATTEND Internal Medicine Pulmonary Disease
DX: R22.2 Localized swelling, mass and lump, trunk (principal)